=== PATIENT | male | born 1965 | race African-American/Black ===

== ENCOUNTER 2024-04-11 13:38 | Emergency (ER) | payer OTHER ==
[~2024-04-11] VITALS: Ht 182.9 cm; Wt 63.5 kg
[2024-04-11] MEDS ORDERED: KETOROLAC TROMETHAMINE INJ 30 MG/ML VIAL ONE (14:28)
[2024-04-11] MEDS ORDERED: dexAMETHasone 1 MG TABLET ONE (14:29)
[2024-04-11] MEDS ORDERED: METHOCARBAMOL (500MG) 500 MG TABLET ONE (14:29)
[2024-04-11] MEDS ORDERED: dexAMETHasone 4 MG TABLET ONE (14:29)
[2024-04-11] MEDS: dexAMETHasone 1 MG TABLET PO ONE (14:37)
[2024-04-11] MEDS: METHOCARBAMOL (750MG) 750 MG TABLET PO SCH (14:37)
[2024-04-11] MEDS: KETOROLAC TROMETHAMINE INJ 30 MG/ML VIAL IM ONE (14:37)
[2024-04-11] MEDS ORDERED: TIZA4TAB5 PO (15:19)
[2024-04-11 16:51] VITALS: BP 128/85; TEMP 98; O2SAT 98
== END 2024-04-11 16:51 | disposition home or self-care (01) ==
LOC: ER 13:41
DX: M54.16 Radiculopathy, lumbar region (principal); R25.2 Cramp and spasm; M79.604 Pain in right leg; G82.20 Paraplegia, unspecified; Z87.81 Personal history of (healed) traumatic fracture; Z87.39 Personal history of other diseases of the musculoskeletal system and connective tissue
CPT/HCPCS: 99283; 96372; J8540 ×2; J1885